=== PATIENT | male | born 1980 | race Caucasian/White ===

== ENCOUNTER 2021-01-08 12:53 | Emergency (ER) | payer MEDICAID, OTHER ==
[~2021-01-08] VITALS: Ht 170.2 cm; Wt 80.0 kg
[~2021-01-08 12:53] MED LIST: ALPR0.5T PO; INSU100C6 SQ; INSU3INS6 SUBCUT; METF-414 PO
[2021-01-08] MEDS ORDERED: SODIUM CHLORIDE 0.9% 1,000 ML IV ONE (13:15)
[2021-01-08 13:53] LABS: EOSINOPHILS % 0.4 % (0.0-5.0); HEMATOCRIT. 46.5 % (42.0-52.0); HEMOGLOBIN. 15.2 g/dL (14.0-18.0); LYMPHOCYTES % 15.2 % (20.0-50.0); MEAN CORPUSCULAR HEMOGLOBIN 28.7 pg (28.0-32.0); MEAN CORPUSCULAR VOLUME 87.5 fL (80.0-94.0); MEAN PLATELET VOLUME 10.3 fl (7.4-10.4); MONOCYTES % 1.9 % (2.0-8.0); NEUTROPHILS % 81.5 % (40.0-76.0); PLATELET 287 x1000/uL (130-400); RED BLOOD CELL COUNT 5.31 mill/uL (4.7-6.1); RED CELL DISTRIBUTION WIDTH 13.7 % (11.6-14.6)
[2021-01-08 13:59] LABS: CHLORIDE 94 mEq/L (98-107)
[2021-01-08 14:06] LABS: BETA HYDROXYBUTYRATE 8.6 mMol/L (0.0-0.3)
[2021-01-08] MEDS ORDERED: ONDANSETRON HCL 4MG/2ML INJ IM ONE (14:15)
[2021-01-08 14:44] LABS: BG BASE EXCESS -14.3 mmol/L (-2.0-2.0); BG CARBOXYHEMOGLOBIN 1.3 % (0.5-1.5); BG DEOXYHEMOGLOBIN 2.2 % (0.0-5.0); BG FRACTION INSPIRED OXYGEN 21; BG METHEMOGLOBIN 0.1 % (0.0-1.5); BG OXYGEN SATURATION 97.8 % (92.0-98.5); BG OXYHEMOGLOBIN 96.4 % (94.0-97.0); BG PCO2 21.6 mmHg (35.0-45.0); BG PH 7.285 (7.350-7.450); BG PO2 113.9 mmHg (75.0-100.0); BG SAMPLE SITE RIGHT BRACHIAL; BG TOTAL HEMOGLOBIN 15.1 g/dL (12.0-18.0); BG VENT MODE ROOM AIR
[2021-01-08 14:55] LABS: CLARITY URINE CLEAR (CLEAR); COLOR URINE YELLOW (YELLOW); KETONES URINE 4+ (NEGATIVE); LEUKOCYTE ESTERASE URINE NEGATIVE (NEGATIVE); NITRITE URINE NEGATIVE (NEGATIVE); OCCULT BLOOD URINE NEGATIVE (NEGATIVE); PROTEIN URINE TRACE (NEGATIVE); SPECIFIC GRAVITY URINE 1.031 (1.005-1.030); UROBILINOGEN URINE 0.2 E.U./dL (0.2-1.0)
[2021-01-08] MEDS ORDERED: INSULIN REGULAR (DRIP) 100 UNITS in SODIUM CHLORIDE 0.9% 99 ML IV SCH (15:00)
[2021-01-08] MEDS ORDERED: ONDANSETRON HCL 4MG/2ML INJ IV ONE (15:45)
[2021-01-08] MEDS ORDERED: SODIUM CHLORIDE 0.9% 100 ML IV ONE (18:30)
[2021-01-08] MEDS ORDERED: METOCLOPRAMIDE HCL 10MG/2ML VIAL IV ONE (18:30)
[2021-01-08 19:41] VITALS: BP 175/87
== END 2021-01-08 20:22 | disposition short-term general hospital (02) ==
LOC: ER 12:53 → CANBEDREQ 22:51
DX: E11.10 Type 2 diabetes mellitus with ketoacidosis without coma (principal); F12.10 Cannabis abuse, uncomplicated; Z79.4 Long term (current) use of insulin
CPT/HCPCS: 36415; 36600; 80053; 81003; 82010; 82375; 82805; 82962; 85025; 93005; 96361; 96365; 96372; 96375; 99291; J1815; J2405; J2765; J7030; J7050; Z7610

== ENCOUNTER 2021-09-10 15:48 | Emergency (ER) | payer MEDICAID, OTHER ==
[~2021-09-10] VITALS: Ht 170.2 cm; Wt 67.0 kg
[~2021-09-10 15:48] MED LIST changes: -METF-414 PO
[2021-09-10] MEDS ORDERED: SODIUM CHLORIDE 0.9% 1,000 ML IV ONE ×3 (16:15→21:15)
[2021-09-10] MEDS ORDERED: KETOROLAC 30MG/ML VIAL IV ONE (16:30)
[2021-09-10] MEDS ORDERED: ACETAMINOPHEN 325MG TABLET PO ONE (16:30)
[2021-09-10 16:32] LABS: BASOPHILS % 0.5 % (0.0-2.0); EOSINOPHILS % 0.6 % (0.0-5.0); LYMPHOCYTES % 28.3 % (20.0-50.0); MEAN CORPUSCULAR HEMOGLOBIN 28.6 pg (28.0-32.0); MEAN CORPUSCULAR VOLUME 84.1 fL (80.0-94.0); MEAN PLATELET VOLUME 9.7 fl (7.4-10.4); NEUTROPHILS % 66.6 % (40.0-76.0); PLATELET 281 x1000/uL (130-400); RED BLOOD CELL COUNT 4.87 mill/uL (4.7-6.1); RED CELL DISTRIBUTION WIDTH 13.7 % (11.6-14.6)
[2021-09-10 16:33] LABS: CHLORIDE 95 mEq/L (98-107)
[2021-09-10 16:34] LABS: INR 0.9; PROTHROMBIN TIME 9.8 sec (9.6-11.0)
[2021-09-10 16:38] LABS: BG BASE EXCESS -6.7 mmol/L (-2.0-2.0); BG DEOXYHEMOGLOBIN 6.5 % (0.0-5.0); BG HCO3 ACT 17.9 mmol/L (22.0-26.0); BG METHEMOGLOBIN 0.3 % (0.0-1.5); BG OXYGEN SATURATION 93.4 % (92.0-98.5); BG OXYHEMOGLOBIN 92.2 % (94.0-97.0); BG PCO2 33.4 mmHg (35.0-45.0); BG PH 7.347 (7.350-7.450); BG PO2 66.8 mmHg (75.0-100.0); BG SAMPLE SITE RIGHT BRACHIAL; BG TOTAL HEMOGLOBIN 14.2 g/dL (12.0-18.0); BG VENT MODE ROOM AIR
[2021-09-10 16:44] LABS: BETA HYDROXYBUTYRATE 5.9 mMol/L (0.0-0.3); ETHANOL BLOOD < 10 mg/dL
[2021-09-10] MEDS ORDERED: INSULIN REGULAR (DRIP) 100 UNITS in SODIUM CHLORIDE 0.9% 99 ML IV ONE (17:15)
[2021-09-10] MEDS ORDERED: INSULIN REGULAR (HUMULIN R) 300UNITS/3ML VIAL IV ONE ×2 (17:15→21:15)
[2021-09-10 19:37] LABS: CLARITY URINE CLEAR (CLEAR); COLOR URINE YELLOW (YELLOW); KETONES URINE 2+ (NEGATIVE); LEUKOCYTE ESTERASE URINE NEGATIVE (NEGATIVE); NITRITE URINE NEGATIVE (NEGATIVE); OCCULT BLOOD URINE NEGATIVE (NEGATIVE); PROTEIN URINE TRACE (NEGATIVE); SPECIFIC GRAVITY URINE 1.036 (1.005-1.030); UROBILINOGEN URINE 0.2 E.U./dL (0.2-1.0)
[2021-09-10 20:12] LABS: *AMPHETAMINES SCREEN URINE NEGATIVE (NEGATIVE); *BARBITURATES SCREEN URINE NEGATIVE (NEGATIVE); *BENZODIAZEPINES SCREEN URINE NEGATIVE (NEGATIVE); *COCAINE SCREEN URINE NEGATIVE (NEGATIVE); CANNABINOID URINE SCREEN PRESUMTIVE POSITIVE (NEGATIVE); METHADONE URINE SCREEN NEGATIVE (NEGATIVE); OPIATES URINE SCREEN NEGATIVE (NEGATIVE); PHENCYCLIDINE URINE SCREEN NEGATIVE (NEGATIVE)
[2021-09-10 21:39] VITALS: BP 144/94
== END 2021-09-10 21:53 | disposition short-term general hospital (02) ==
LOC: ER 15:48
DX: E11.65 Type 2 diabetes mellitus with hyperglycemia (principal); Z20.822 Contact with and (suspected) exposure to COVID-19; Z86.39 Personal history of other endocrine, nutritional and metabolic disease
CPT/HCPCS: 36415; 36600; 71045; 80053; 80305; 80320; 81003; 82010; 82375; 82805; 82962; 83036; 83690; 83880; 84484; 85025; 85610; 87426; 96361; 96374; 96375; 96376; 99291; C9803; J1815; J1885; J7030; Z7610; J7050; G0480

== ENCOUNTER 2021-11-19 13:57 | Emergency (ER) | payer MEDICAID, OTHER ==
[~2021-11-19] VITALS: Ht 177.8 cm; Wt 77.0 kg
[2021-11-19] MEDS ORDERED: LIDOCAINE HCL/PF 1% 2ML VIAL ONE (14:40)
[2021-11-19] MEDS ORDERED: SODIUM CHLORIDE 0.9% 1,000 ML IV ONE (14:45)
[2021-11-19 14:53] LABS: BASOPHILS % 0.8 % (0.0-2.0); HEMATOCRIT. 35.9 % (42.0-52.0); HEMOGLOBIN. 11.8 g/dL (14.0-18.0); LYMPHOCYTES % 25.9 % (20.0-50.0); MEAN CORPUSCULAR HEMOGLOBIN 28.3 pg (28.0-32.0); MEAN CORPUSCULAR VOLUME 86.1 fL (80.0-94.0); MEAN PLATELET VOLUME 9.9 fl (7.4-10.4); MONOCYTES % 4.3 % (2.0-8.0); PLATELET 258 x1000/uL (130-400); RED BLOOD CELL COUNT 4.17 mill/uL (4.7-6.1); RED CELL DISTRIBUTION WIDTH 13.6 % (11.6-14.6)
[2021-11-19 14:58] LABS: CHLORIDE 95 mEq/L (98-107)
[2021-11-19 15:06] LABS: BG BASE EXCESS -1.6 mmol/L (-2.0-2.0); BG CARBOXYHEMOGLOBIN 1.4 % (0.5-1.5); BG DEOXYHEMOGLOBIN 3.3 % (0.0-5.0); BG HCO3 ACT 22.5 mmol/L (22.0-26.0); BG METHEMOGLOBIN 0.3 % (0.0-1.5); BG OXYGEN SATURATION 96.6 % (92.0-98.5); BG PCO2 35.9 mmHg (35.0-45.0); BG PH 7.414 (7.350-7.450); BG SAMPLE SITE RIGHT BRACHIAL; BG VENT MODE ROOM AIR
[2021-11-19 15:08] LABS: BETA HYDROXYBUTYRATE 0.7 mMol/L (0.0-0.3); PHOSPHORUS 3.3 mg/dL (2.5-4.9)
[2021-11-19 15:55] LABS: CLARITY URINE CLEAR (CLEAR); COLOR URINE YELLOW (YELLOW); KETONES URINE TRACE (NEGATIVE); LEUKOCYTE ESTERASE URINE NEGATIVE (NEGATIVE); NITRITE URINE NEGATIVE (NEGATIVE); OCCULT BLOOD URINE NEGATIVE (NEGATIVE); PH URINE 5.5 (4.5-8.0); PROTEIN URINE NEGATIVE (NEGATIVE); SPECIFIC GRAVITY URINE 1.031 (1.005-1.030); UROBILINOGEN URINE 0.2 E.U./dL (0.2-1.0)
[2021-11-19] MEDS ORDERED: INSULIN REGULAR (HUMULIN R) 300UNITS/3ML VIAL IV SCH (16:00)
[2021-11-19] MEDS ORDERED: SODIUM CHLORIDE 0.9% 1,000 ML IV SCH (16:00)
[2021-11-19] MEDS ORDERED: IBUPROFEN 600MG TABLET PO ONE (16:30)
[2021-11-19] MEDS ORDERED: ACETAMINOPHEN 325MG TABLET PO ONE (16:30)
[2021-11-19 17:10] LABS: CHLORIDE 99 mEq/L (98-107)
[2021-11-19 18:18] VITALS: BP 142/89
== END 2021-11-19 18:28 | disposition home or self-care (01) ==
LOC: ER 13:57
DX: R35.89 Other polyuria (principal); E11.9 Type 2 diabetes mellitus without complications; I49.9 Cardiac arrhythmia, unspecified; Z86.39 Personal history of other endocrine, nutritional and metabolic disease
CPT/HCPCS: 36415; 36600; 71045; 80048; 80053; 81003; 82010; 82375; 82805; 82962; 83690; 83735; 84100; 84484; 85025; 93005; 96361; 96374; 99285; J3490; J7030

== ENCOUNTER 2023-03-14 00:07 | Emergency (ER) | payer OTHER ==
[~2023-03-14] VITALS: Ht 175.3 cm; Wt 103.0 kg
[~2023-03-14 00:07] MED LIST changes: -INSU100C6 SQ; +INSU100I28 SQ; -INSU3INS6 SUBCUT; +LOSA50TA41 PO; +METO25TA6 PO
[2023-03-14 00:08] VITALS: O2SAT 100
[2023-03-14] MEDS ORDERED: SODIUM CHLORIDE 0.9% 1,000 ML IV ONE (00:15)
[2023-03-14 00:24] LABS: BASOPHILS % 0.5 % (0.0-2.0); EOSINOPHILS % 0.2 % (0.0-5.0); HEMATOCRIT. 37.8 % (42.0-52.0); HEMOGLOBIN. 12.3 g/dL (14.0-18.0); LYMPHOCYTES % 20.3 % (20.0-50.0); MEAN CORPUSCULAR HEMOGLOBIN 27.8 pg (28.0-32.0); MEAN CORPUSCULAR HGB CONC 32.5 g/dL (31.0-37.0); MEAN CORPUSCULAR VOLUME 85.8 fL (80.0-94.0); MEAN PLATELET VOLUME 8.2 fl (7.4-10.4); MONOCYTES % 2.8 % (2.0-8.0); NEUTROPHILS % 76.2 % (40.0-76.0); PLATELET 338 x1000/uL (130-400); RED CELL DISTRIBUTION WIDTH 18.2 % (11.6-14.6); WHITE BLOOD COUNT 15.5 x1000/uL (4.5-11.0)
[2023-03-14 00:34] LABS: PARTIAL THROMBOPLASTIN TIME 26.2 sec (23.4-31.0); PROTHROMBIN TIME 11.1 sec (9.6-11.0)
[2023-03-14 00:36] LABS: ALANINE AMINOTRANSFERASE 37 IU/L (10-49); ALBUMIN 3.5 g/dL (3.2-4.8); ASPARTATE AMINOTRANSFERASE 56 IU/L (<34); BILIRUBIN TOTAL 0.4 mg/dL (0.1-1.0); CALCIUM 8.8 mg/dL (8.7-10.4); CARBON DIOXIDE 23 mEq/L (21-32); CHLORIDE 102 mEq/L (98-107); CREATININE 2.3 mg/dL (0.6-1.3); POTASSIUM 4.4 mEq/L (3.5-5.1); PROTEIN TOTAL 6.8 g/dL (6.0-8.3); SODIUM 135 mEq/L (136-145); TROPONIN I HIGH SENSITIVITY 17 ng/L (3.0-53); UREA NITROGEN BLOOD 31 mg/dL (9-23)
[2023-03-14 00:41] LABS: ETHANOL BLOOD < 10 mg/dL (<10); GLUCOSE 496 mg/dL (70-105)
[2023-03-14] MEDS ORDERED: INSULIN REGULAR (HUMULIN R) 300UNITS/3ML VIAL SUBCUT NR (01:15)
[2023-03-14] MEDS ORDERED: LABETALOL HCL VIAL 20 MG/4 ML VIAL IV ONE (02:45)
[2023-03-14] MEDS ORDERED: ACETAMINOPHEN 325MG TABLET PO ONE (02:45)
[2023-03-14 05:54] LABS: CLARITY URINE CLEAR (CLEAR); COLOR URINE YELLOW (YELLOW); GLUCOSE URINE 3+ (NEGATIVE); KETONES URINE TRACE (NEGATIVE); LEUKOCYTE ESTERASE URINE NEGATIVE (NEGATIVE); NITRITE URINE NEGATIVE (NEGATIVE); OCCULT BLOOD URINE 2+ (NEGATIVE); PROTEIN URINE 4+ (NEGATIVE); SPECIFIC GRAVITY URINE 1.023 (1.005-1.030); UROBILINOGEN URINE 0.2 E.U./dL (0.2-1.0)
[2023-03-14 06:06] LABS: *AMPHETAMINES SCREEN URINE PRESUMPTIVE POSITIVE (NEGATIVE); *BARBITURATES SCREEN URINE NEGATIVE (NEGATIVE); *BENZODIAZEPINES SCREEN URINE NEGATIVE (NEGATIVE); *COCAINE SCREEN URINE NEGATIVE (NEGATIVE); CANNABINOID URINE SCREEN PRESUMPTIVE POSITIVE (NEGATIVE); ECSTASY MDMA SCREEN URINE NEGATIVE (NEGATIVE); METHADONE URINE SCREEN Neg (NEGATIVE); OPIATES URINE SCREEN NEGATIVE (NEGATIVE); PHENCYCLIDINE URINE SCREEN NEGATIVE (NEGATIVE)
[2023-03-14 07:11] LABS: BACTERIA URINE NONE SEEN; RBC URINE 0-2 /hpf (0-2); SQUAMOUS EPITHELIAL CELL URINE NONE SEEN /lpf (RARE/1+); WBC URINE 0-2 /hpf (0-2)
[2023-03-14 07:30] VITALS: BP 162/82; PULSE 69; RESP 12
== END 2023-03-14 08:12 | disposition short-term general hospital (02) ==
LOC: ER 00:18
DX: J96.90 Respiratory failure, unspecified, unspecified whether with hypoxia or hypercapnia (principal); E11.65 Type 2 diabetes mellitus with hyperglycemia; E87.20 Acidosis, unspecified; F11.90 Opioid use, unspecified, uncomplicated; I10 Essential (primary) hypertension; R51.9 Headache, unspecified; Z86.39 Personal history of other endocrine, nutritional and metabolic disease
CPT/HCPCS: 80053; 80305; 81003; 80320; 82962; 83880; 83605; 83735; 84100; 85025; 85610; 85730; 87040; 87086; 84484; 36415; 71045; 70450; 74176; 51702; 96361; 96372; 96374; 99285; J1815; J3490; J7030; Z7610; G0480

== ENCOUNTER 2023-04-30 04:11 | Emergency (ER) | payer MEDICAID, OTHER ==
[~2023-04-30] VITALS: Ht 175.3 cm; Wt 77.0 kg
[2023-04-30 04:28] VITALS: O2SAT 99
[2023-04-30] MEDS: MAGNESIUM/ALUMINUM HYDROXIDE/SIMETHICONE 30ML UDC PO STA (08:08)
[2023-04-30] MEDS: SODIUM CHLORIDE 0.9% 1,000 ML IV ONE (08:15)
[2023-04-30 08:53] LABS: BASOPHILS % 0.4 % (0.0-2.0); HEMATOCRIT. 34.7 % (42.0-52.0); LYMPHOCYTES % 23.3 % (20.0-50.0); MEAN CORPUSCULAR HEMOGLOBIN 29.1 pg (28.0-32.0); MEAN CORPUSCULAR HGB CONC 34.6 g/dL (31.0-37.0); MEAN CORPUSCULAR VOLUME 84.1 fL (80.0-94.0); MONOCYTES % 5.2 % (2.0-8.0); NEUTROPHILS % 70.1 % (40.0-76.0); PLATELET 439 x1000/uL (130-400); RED BLOOD CELL COUNT 4.12 mill/uL (4.7-6.1); RED CELL DISTRIBUTION WIDTH 15.4 % (11.6-14.6); WHITE BLOOD COUNT 9.4 x1000/uL (4.5-11.0)
[2023-04-30 09:04] LABS: INR 0.9; PROTHROMBIN TIME 9.8 sec (9.6-11.0)
[2023-04-30 09:09] LABS: ALANINE AMINOTRANSFERASE 18 IU/L (10-49); ALBUMIN 3.4 g/dL (3.2-4.8); ASPARTATE AMINOTRANSFERASE 22 IU/L (<34); BILIRUBIN TOTAL 0.4 mg/dL (0.1-1.0); CALCIUM 8.7 mg/dL (8.7-10.4); CARBON DIOXIDE 25 mEq/L (21-32); CHLORIDE 101 mEq/L (98-107); CREATININE 2.9 mg/dL (0.6-1.3); POTASSIUM 4.4 mEq/L (3.5-5.1); PROTEIN TOTAL 6.5 g/dL (6.0-8.3); SODIUM 134 mEq/L (136-145); UREA NITROGEN BLOOD 54 mg/dL (9-23)
[2023-04-30 09:14] LABS: GLUCOSE 256 mg/dL (70-105)
[2023-04-30] MEDS: FAMOTIDINE 20MG/2ML VIAL IV STA (09:19)
[2023-04-30] MEDS: ONDANSETRON HCL 4MG/2ML INJ IV STA (09:20)
[2023-04-30] MEDS: KETOROLAC 30MG/ML VIAL IV STA (09:20)
[2023-04-30 11:29] VITALS: BP 184/110; PULSE 68; RESP 19; TEMP 97.8
[2023-04-30] MEDS ORDERED: HYDRALAZINE 20MG/ML VIAL IV ONE (11:45)
== END 2023-04-30 11:54 | disposition short-term general hospital (02) ==
LOC: ER 04:11
DX: R10.9 Unspecified abdominal pain (principal); R11.2 Nausea with vomiting, unspecified; E11.9 Type 2 diabetes mellitus without complications; I10 Essential (primary) hypertension; Z86.39 Personal history of other endocrine, nutritional and metabolic disease
CPT/HCPCS: 80053; 83690; 85025; 85610; 36415; 96361; 96374; 96375; 99285; J3490; J0360; J1885; J2405; J7030; Z7610 ×3

== ENCOUNTER 2023-06-03 05:25 | Emergency (ER) | payer OTHER ==
[~2023-06-03] VITALS: Ht 182.9 cm; Wt 77.0 kg
[2023-06-03 05:26] VITALS: O2SAT 100
[2023-06-03 06:36] LABS: BASOPHILS % 0.6 % (0.0-2.0); EOSINOPHILS % 0.5 % (0.0-5.0); HEMATOCRIT. 30.5 % (42.0-52.0); HEMOGLOBIN. 10.6 g/dL (14.0-18.0); LYMPHOCYTES % 22.8 % (20.0-50.0); MEAN CORPUSCULAR HEMOGLOBIN 29.2 pg (28.0-32.0); MEAN CORPUSCULAR HGB CONC 34.7 g/dL (31.0-37.0); MEAN PLATELET VOLUME 8.1 fl (7.4-10.4); MONOCYTES % 5.3 % (2.0-8.0); NEUTROPHILS % 70.8 % (40.0-76.0); PLATELET 307 x1000/uL (130-400); RED BLOOD CELL COUNT 3.62 mill/uL (4.7-6.1); RED CELL DISTRIBUTION WIDTH 14.6 % (11.6-14.6); WHITE BLOOD COUNT 7.6 x1000/uL (4.5-11.0)
[2023-06-03 07:05] LABS: ALANINE AMINOTRANSFERASE 12 IU/L (10-49); ALBUMIN 3.2 g/dL (3.2-4.8); ASPARTATE AMINOTRANSFERASE 25 IU/L (<34); BILIRUBIN TOTAL 0.3 mg/dL (0.1-1.0); CALCIUM 8.3 mg/dL (8.7-10.4); CARBON DIOXIDE 24 mEq/L (21-32); CHLORIDE 109 mEq/L (98-107); CREATININE 3.1 mg/dL (0.6-1.3); POTASSIUM 4.4 mEq/L (3.5-5.1); SODIUM 138 mEq/L (136-145); UREA NITROGEN BLOOD 50 mg/dL (9-23)
[2023-06-03] MEDS: HYDRALAZINE 20MG/ML VIAL IV ONE (07:09)
[2023-06-03] MEDS: KETOROLAC 30MG/ML VIAL IV STA (07:09)
[2023-06-03] MEDS: METOCLOPRAMIDE HCL 10MG/2ML VIAL IV ONE (07:10)
[2023-06-03] MEDS: SODIUM CHLORIDE 0.9% 1,000 ML IV ONE (07:10)
[2023-06-03 07:25] LABS: GLUCOSE 67 mg/dL (70-105)
[2023-06-03 11:45] VITALS: BP 179/77; PULSE 78; RESP 14; TEMP 98.7
== END 2023-06-03 12:23 | disposition short-term general hospital (02) ==
LOC: ER 05:25
DX: E11.9 Type 2 diabetes mellitus without complications (principal); I16.0 Hypertensive urgency; Z86.39 Personal history of other endocrine, nutritional and metabolic disease
CPT/HCPCS: 80053; 82962; 85025; 36415; 70450; 96361; 96374; 96375; 99285; J0360; J1885; J2765; J7030; Z7610 ×3